=== PATIENT | female | born 1995 | race Caucasian/White ===

== ENCOUNTER 2021-05-07 14:16 | Emergency (ER) | payer OTHER ==
[~2021-05-07] VITALS: Ht 165.1 cm; Wt 73.0 kg
[2021-05-07] MEDS ORDERED: ACETAMINOPHEN 325MG TABLET PO STA (14:41)
[2021-05-07 15:22] LABS: CHLORIDE 109 mEq/L (98-107)
[2021-05-07] MEDS ORDERED: T3 PO (16:45)
[2021-05-07 17:38] VITALS: BP 118/71
== END 2021-05-07 17:40 | disposition home or self-care (01) ==
LOC: ER 14:16
DX: O99.891 Other specified diseases and conditions complicating pregnancy (principal); M62.838 Other muscle spasm; Z3A.37 37 weeks gestation of pregnancy
CPT/HCPCS: 36415; 80053; 99283

== ENCOUNTER 2021-05-08 02:20 | Emergency (ER) | payer OTHER ==
[~2021-05-08] VITALS: Ht 165.1 cm; Wt 74.0 kg
[~2021-05-08 02:20] MED LIST: T3 PO
[2021-05-08 04:15] LABS: BASOPHILS % 0.1 % (0.0-2.0); EOSINOPHILS % 0.6 % (0.0-5.0); HEMATOCRIT. 29.8 % (36.0-48.0); HEMOGLOBIN. 9.9 g/dL (12.0-16.0); LYMPHOCYTES % 19.4 % (20.0-50.0); MEAN CORPUSCULAR VOLUME 81.5 fL (81.0-99.0); MEAN PLATELET VOLUME 9.2 fl (7.4-10.4); MONOCYTES % 7.7 % (2.0-8.0); NEUTROPHILS % 72.2 % (40.0-76.0); PLATELET 158 x1000/uL (130-400); RED BLOOD CELL COUNT 3.66 mill/uL (4.2-5.4); RED CELL DISTRIBUTION WIDTH 13.8 % (11.6-14.6)
[2021-05-08 04:25] LABS: CHLORIDE 107 mEq/L (98-107)
[2021-05-08] MEDS ORDERED: ACETAMINOPHEN 325MG TABLET PO SCH (06:30)
[2021-05-08 08:09] VITALS: BP 114/72
== END 2021-05-08 08:12 | disposition home or self-care (01) ==
LOC: ER 02:20
DX: O26.893 Other specified pregnancy related conditions, third trimester (principal); M25.512 Pain in left shoulder; I49.9 Cardiac arrhythmia, unspecified; Z3A.37 37 weeks gestation of pregnancy
CPT/HCPCS: 36415; 73030; 80053; 85025; 93005; 99285

== ENCOUNTER 2021-07-16 16:55 | Emergency (ER) | payer MEDICAID, OTHER ==
[~2021-07-16] VITALS: Ht 165.1 cm; Wt 70.0 kg
[2021-07-16] MEDS ORDERED: CYCL5TAB MT (23:24)
[2021-07-16] MEDS ORDERED: CELE100C MT (23:24)
[2021-07-16] MEDS ORDERED: IBUPROFEN 600MG TABLET PO ONE (23:45)
[2021-07-16] MEDS ORDERED: HYDROCODONE/ACETAMINOPHEN 10/325MG TABLET PO ONE (23:45)
[2021-07-17 00:14] VITALS: BP 114/75
== END 2021-07-17 00:24 | disposition home or self-care (01) ==
LOC: ER 16:55
DX: M13.0 Polyarthritis, unspecified (principal); Z88.0 Allergy status to penicillin
CPT/HCPCS: 99283

== ENCOUNTER 2021-08-29 02:44 | Emergency (ER) | payer MEDICAID, OTHER ==
[~2021-08-29] VITALS: Ht 165.1 cm; Wt 71.0 kg
[~2021-08-29 02:44] MED LIST changes: +CELE100C MT; +CYCL5TAB MT
[2021-08-29] MEDS ORDERED: IBUPROFEN 600MG TABLET PO ONE (04:30)
[2021-08-29] MEDS ORDERED: NAPR-1176 MT (04:44)
[2021-08-29 04:51] VITALS: BP 116/62
== END 2021-08-29 04:53 | disposition home or self-care (01) ==
LOC: ER 02:44
DX: M25.562 Pain in left knee (principal); Z88.0 Allergy status to penicillin
CPT/HCPCS: 81025; 99282

== ENCOUNTER 2021-12-21 23:21 | Emergency (ER) | payer MEDICAID, OTHER ==
[~2021-12-21] VITALS: Ht 165.1 cm; Wt 70.0 kg
[~2021-12-21 23:21] MED LIST changes: +NAPR-1176 MT
[2021-12-22] MEDS ORDERED: KETOROLAC 60MG/2ML VIAL IM ONE (00:30)
[2021-12-22 01:07] LABS: EOSINOPHILS % 0.5 % (0.0-5.0); HEMATOCRIT. 34.1 % (36.0-48.0); LYMPHOCYTES % 18.1 % (20.0-50.0); MEAN CORPUSCULAR VOLUME 77.8 fL (81.0-99.0); MEAN PLATELET VOLUME 8.2 fl (7.4-10.4); MONOCYTES % 5.5 % (2.0-8.0); NEUTROPHILS % 75.9 % (40.0-76.0); PLATELET 297 x1000/uL (130-400); RED BLOOD CELL COUNT 4.39 mill/uL (4.2-5.4)
[2021-12-22 01:15] LABS: HCG SCREEN NEGATIVE
[2021-12-22 01:19] LABS: CHLORIDE 106 mEq/L (98-107)
[2021-12-22 01:20] VITALS: BP 112/64
[2021-12-22] MEDS ORDERED: LORAZEPAM 0.5MG TABLET PO ONE (02:30)
== END 2021-12-22 03:08 | disposition home or self-care (01) ==
LOC: ER 23:46
DX: R07.89 Other chest pain (principal); R06.00 Dyspnea, unspecified; Z88.0 Allergy status to penicillin
CPT/HCPCS: 36415; 71045; 80053; 84484; 84703; 85025; 93005; 96372; 99285; J1885

== ENCOUNTER 2022-04-24 05:46 | Emergency (ER) | payer MEDICAID, OTHER ==
[~2022-04-24] VITALS: Ht 165.1 cm; Wt 68.9 kg
[2022-04-24] MEDS ORDERED: MELO-105 MT (06:35)
[2022-04-24] MEDS ORDERED: KETOROLAC 60MG/2ML VIAL IM ONE (06:45)
[2022-04-24 06:56] VITALS: BP 121/77
== END 2022-04-24 06:58 | disposition home or self-care (01) ==
LOC: ER 05:46
DX: M67.471 Ganglion, right ankle and foot (principal); Z88.0 Allergy status to penicillin
CPT/HCPCS: 81025; 96372; 99283; J1885

== ENCOUNTER 2023-02-21 14:14 | Emergency (ER) | payer OTHER ==
[~2023-02-21] VITALS: Ht 165.1 cm; Wt 72.6 kg
[~2023-02-21 14:14] MED LIST changes: +MELO-105 MT
[2023-02-21 14:21] VITALS: BP 112/66; PULSE 88; RESP 16; O2SAT 99
[2023-02-21 15:18] LABS: CHLORIDE 108 mEq/L (98-107); INDEX HEMOLYSI 1 (1-3); INDEX ICTERIC 1 (1-4); INDEX LIPEMIC 1 (1-3); POTASSIUM 3.4 mEq/L (3.5-5.1); SODIUM 140 mEq/L (136-145)
[2023-02-21 15:27] LABS: ALANINE AMINOTRANSFERASE 27 IU/L (13-61); ALBUMIN 3.4 g/dL (3.4-5.0); ASPARTATE AMINOTRANSFERASE 16 IU/L (15-37); BASOPHILS % 0.2 % (0.0-2.0); BILIRUBIN TOTAL 0.3 mg/dL (0.1-1.0); CALCIUM 8.6 mg/dL (8.5-10.1); CARBON DIOXIDE 25 mEq/L (21-32); CREATININE 0.7 mg/dL (0.6-1.3); DIFFERENTIAL COMMENT 0; EOSINOPHILS % 0.5 % (0.0-5.0); GLUCOSE 102 mg/dL (70-105); HEMATOCRIT. 35.3 % (36.0-48.0); HEMOGLOBIN. 11.7 g/dL (12.0-16.0); MEAN CORPUSCULAR HEMOGLOBIN 25.5 pg (28.0-32.0); MEAN CORPUSCULAR HGB CONC 33.1 g/dL (31.0-37.0); MEAN CORPUSCULAR VOLUME 77.2 fL (81.0-99.0); MEAN PLATELET VOLUME 7.9 fl (7.4-10.4); MONOCYTES % 4.7 % (2.0-8.0); NEUTROPHILS % 68.6 % (40.0-76.0); PLATELET 320 x1000/uL (130-400); PROTEIN TOTAL 8.1 g/dL (6.0-8.3); RED BLOOD CELL COUNT 4.58 mill/uL (4.2-5.4); RED CELL DISTRIBUTION WIDTH 16.2 % (11.6-14.6); UREA NITROGEN BLOOD 14 mg/dL (7-21); WHITE BLOOD COUNT 9.2 x1000/uL (4.5-11.0)
[2023-02-21 16:30] VITALS: TEMP 98.5
[2023-02-21] MEDS ORDERED: ACETAMINOPHEN 325MG TABLET PO ONE (16:30)
[2023-02-21] MEDS ORDERED: FAMO-135 MT (16:51)
[2023-02-21] MEDS ORDERED: ACET-2708 MT (16:51)
== END 2023-02-21 17:18 | disposition home or self-care (01) ==
LOC: ER 14:14
DX: R07.2 Precordial pain (principal); Z88.0 Allergy status to penicillin; Z79.899 Other long term (current) drug therapy
CPT/HCPCS: 36415; 71045; 80053; 85025; 93005; 99285